=== PATIENT | male | born 1940 | race Caucasian/White ===

== ENCOUNTER 2016-06-18 09:32 | Outpatient (CLI) | payer MEDICARE ==
[2015-11-06 15:13] VITALS: BMI 33.5
--- NOTE | ~2016-06-18 | HEMODYNAMI ---
PATIENT:NANCY REGAN MEDICAL RECORD: [id number] : 44 LOCATION:[facility] ADMISSION DATE: 06/18/16 Generatedon:06/18/201612:19 Patient name: NANCY REGAN Patient #: [id number] SSN: : 1 Date of study: 06/18/2016 Page: Of Hemodynamic Procedure Report Patient Data Patient Demographics Procedure consent was obtained First Name: NANCY Gender: Male Last Name: JASS : 1940 [facility] Initial: [place] Age: 76 year(s) Patient #: [id number] Race: Additional ID: [id number] Contact details [address]: [address] [place] [address] State: [place] City: [place] Zip code: [address] Past Medical History Allergies Allergen Reaction Date Comments Reported Other allergy 12/24/2014 Crabmeat Admission Admission Data Admission Date: 06/18/2016 Admission Time: 9:32 Admit Source: Emergency department Lab Results Lab Result Date: 06/18/2016 Lab Result Time: 0:00 Biochemistry Name Units Result Min Max BUN mg/dl 22 --(----)-* 7 18 Creatinine mg/dl 1.1 --(--*-)-- 0.6 1.3 CBC Name Units Result Min Max Hemoglobin g/dl 16.1 --(--*-)-- 13.5 17.5 Procedure Procedure Types Cath Procedure Diagnostic Procedure LHC LHC w/Coronaries w/Grafts Miscellaneous Procedures Moderate Sedation up to 15 minutes Procedure Description Procedure Date Procedure Date: 06/18/2016 Procedure Start Time: 12:08 Procedure End Time: 12:15 Procedure Staff Name Function Cecil Herrera MD Performing Physician Tamika Conley RN Nurse Eric Friedman RT Monitor Cristobal Ferraro RT Scrub Wiliam Ornelas RT Traffic Lieutenant Procedure Data Cath Procedure Fluoroscopy Diagnostic fluoroscopy Total fluoroscopy Time: 1.1 time: 1.1 min min Diagnostic fluoroscopy Total fluoroscopy dose: 328 dose: 328 mGy mGy Contrast Material Contrast Material Type Amount (ml) Isovue 300 53 Entry Location Entry Primary Successful Side Size Upsize Upsize Entry Closure Succes sful Closure Location (Fr) 1 (Fr) 2 (Fr) Remarks Device Remarks Femoral Right 5 Fr Vascade artery Closure System Diagnostic catheters Device Type Used For End Catheter Placement Cordis 5Fr Pigtail LV Angiography Catheter (MP) Cordis 5Fr JL 4.0 Left Coronary Catheter (MP) Angiography Cordis 5Fr 3DRC Catheter Right Coronary (MP) Angiography Procedure Complications No complications Procedure Medications Medication Administration Route Dosage Oxygen NC 2 l/min Heparin Flush Bag added to field 2 bags (1000units/500ml NS) Lidocaine 2% added to field 20 Fentanyl I.V. 50 mcg Fentanyl I.V. 50 mcg Fentanyl I.V. 50 mcg Versed I.V. 2 mg Fentanyl I.V. 50 mcg Versed I.V. 2 mg Versed I.V. 1 mg Versed I.V. 1 mg Hemodynamics Rest HGB: 16.1 (g/dl) Heart Rate: 70 (bpm) Snapshots Pre Cath Intra NCS Post Cath Vital Signs Time Heart Resp SPO2 etCO2 TD8cysh NIBP (mmHg) Rhythm Pain Status Se dation Rate (ipm) (%) (mmHg) (mmHg) Level (bpm) 11:15:49 76 21 98 0 0 153/91(114) NSR 4 (11) , 10 (A) Distressing 11:20:31 70 21 99 0 0 143/59(95) NSR 8 (11) , 10 (A) Utterly horrible 11:25:04 69 14 97 0 0 126/76(121) NSR 6 (11) , 10 (A) Intense 11:29:22 69 16 96 0 0 109/79(97) NSR 6 (11) , 10 (A) Intense 11:33:40 69 16 100 0 0 113/73(96) NSR 7 (11) , Very 10 (A) intense 11:37:54 69 16 96 0 0 113/84(94) NSR 7 (11) , Very 10 (A) intense 11:42:14 70 16 95 0 0 123/75(98) NSR 2 (11) , 10 (A) Uncomfortable 11:46:34 77 16 95 0 0 115/71(90) NSR 2 (11) , 10 (A) Uncomfortable 11:50:56 76 18 95 0 0 117/73(99) NSR 2 (11) , 10 (A) Uncomfortable 11:55:21 73 16 95 0 0 115/74(110) NSR 2 (11) , 10 (A) Uncomfortable 11:59:43 71 19 97 0 0 113/75(107) NSR 2 (11) , 10 (A) Uncomfortable 12:04:01 69 13 97 0 0 123/81(96) NSR 0 (11) , No 10 (A) pain 12:08:17 69 16 97 0 0 119/82(98) NSR 0 (11) , No 10 (A) pain 12:12:41 69 16 95 0 0 103/63(88) NSR 0 (11) , No 9( A) pain 12:15:47 69 18 96 0 0 115/73(102) NSR 0 (11) , No 9( A) pain Medications Time Medication Route Dose Verified Delivered Reason Notes Eff ectiveness by by 11:21:17 Oxygen NC 2 Cecil Tamika Per l/min Javier Conley RN physician 11:21:26 Heparin Flush added 2 Cecil Jacob used for Bag to bags Javier Herrera MD procedure (1000units/500ml field NS) 11:21:32 Lidocaine 2% added 20ml Cecil Jacob used for to vial Javier Herrera MD procedure field 11:23:11 Fentanyl I.V. 50 Cecil Tamika for chest pt mcg Javier Conley RN pain reports left hip pain spasms and chest pain constant 11/25 11:26:30 Fentanyl I.V. 50 Cecil Tamika for chest pt mcg Javier Conley RN pain reports left hip pain spasms and chest pain constant 09/25 11:33:49 Fentanyl I.V. 50 Cecil Tamika for chest pt mcg Javier Conley RN pain reports left hip pain spasms and chest pain constant 10/25 12:04:23 Versed I.V. 2 mg Cecil Tamika for Javier Conley RN sedation 12:04:38 Fentanyl I.V. 50 Cecil Tamika for mcg Javier Conley RN sedation 12:05:40 Versed I.V. 2 mg Cecil Lundberg for Javier Conley RN sedation 12:07:11 Versed I.V. 1 mg Cecil Lundberg for Javier Conley RN sedation 12:09:09 Versed I.V. 1 mg Cecil Lundberg for Javier Conley RN sedation Procedure Log Time Note 11:00:00 Wiliam Johnson RT(R) (CV) sent for patient. Start room use. 11:00:01 Time tracking: Regular hours 11:00:06 Plan of Care:Hemodynamics will remain stable., Cardiac rhythm will remain stable., Comfort level will be maintained., Respiratory function will remain adequate., Patient/ family verbilizes understanding of procedure., Procedure tolerated without complication., Recovers from procedure without complications.. 11:01:40 H&P Date Dictated: 06/18/2016 Emergent; H&P N/A. 11:01:41 Pre-procedure instructions explained to patient. 11:01:42 Pre-op teaching completed and patient verbalized understanding. 11:01:43 Family in waiting room. 11:01:49 Patient NPO since Midnight. 11:01:54 Is the patient allergic to Iodine/contrast media? No. 11:02:05 ACC The patient was administered the following blood thiners within the last 24 hours: None 11:02:09 Patient diabetic? No. 11:07:04 Patient received from ED to CCL 1 Alert and oriented. Tansferred to table in Supine position. 11:07:05 Warm blankets applied, and matti hugger turned on for patient comfort. 11:07:06 Correct patient and procedure confirmed by team. 11:07:07 Signed procedure consent form obtained from patient. 11:07:11 ECG and BP/O2 sat monitors applied to patient. 11:14:21 Vital chart was started 11:15:02 Rhythm: sinus rhythm 11:15:04 Full Disclosure recording started 11:21:17 Oxygen 2 l/min NC was given by Tamika Conley RN; Per physician; 11:21:26 Heparin Flush Bag (1000units/500ml NS) 2 bags added to field was given by Cecil Herrera MD; used for procedure; 11:21:32 Lidocaine 2% 20ml vial added to field was given by Cecil Herrera MD; used for procedure; 11::28 Admit Source: Emergency department 11:22:33 ACC Patient presents with Unstable Angina CCS Anginal Class 3--Marked limitation of physical activity, angina occurs with ordinary activity.. 11:22:40 Diagnostic Cath status Emergency 11::49 Baseline sample Acquired. 11:23:11 Fentanyl 50 mcg I.V. was given by Tamika Conley RN; for chest pain; pt reports left hip pain spasms and chest pain constant 11/25 11:23:16 Is patient on blood thinner?No 11:24:17 ----Pre-sedation anethsthesia assessment.---- 11:24:20 Previous problem with sedation/anesthesia? No ? 11:24:49 Snore? Yes 11:24:51 Sleep apnea? No 11:24:53 Deviated septum? No 11:24:55 Opens mouth fully? Yes 11:24:56 Sticks out tongue? Yes 11:25:02 Airway obstruction? No ? 11:25:05 Dentures? Yes out 11:25:09 Pre procedure: right dorsailis pedis pulse 1+ Palpable, but thready & weak; easily obliterated 11:25:12 Patient pain scale 0/10 ?. 11:25:18 IV patent on arrival in left forearm with 0.9% NaCl at 10ml/hr. 11:25:31 Right groin area was prepped with chlora-prep and draped in sterile fashion 11:25:32 Alarms reviewed by R. N. 11:25:32 Sharps counted by scrub and verified by R.N. 11::30 Fentanyl 50 mcg I.V. was given by Tamika Conley RN; for chest pain; pt reports left hip pain spasms and chest pain constant 09/25 11:28:23 Lab Result : BUN 22 mg/dl 11::23 Lab Result : Hemoglobin 16.1 g/dl ::23 Lab Result : Creatinine 1.1 mg/dl 11:33:49 Fentanyl 50 mcg I.V. was given by Tamika Conley RN; for chest pain; pt reports left hip pain spasms and chest pain constant 10/25 11:41:18 Zero performed for pressure channel P1 11:41:21 Zero performed for pressure channel P1 12:04:06 --------ALL STOP TIME OUT------ 12:04:06 Final Timeout: patient, procedure, and site verified with staff and physician. All members of the team are in agreement. 12:04:08 Right groin site verified by team. 12:04:13 Physical assessment completed. ASA score P 2 - A patient with mild systemic disease as per Cecil Herrera MD. 12:04:17 Sedation plan: IV Moderate Sedation Versed, Fentanyl 12:04:23 Versed 2 mg I.V. was given by Tamika Conley RN; for sedation; 12:04:38 Fentanyl 50 mcg I.V. was given by Tamika Conley RN; for sedation; 12:04:42 Use device set Femoral Dx 12:04:43 Acist Syringe opened to sterile field. 12:04:43 Bag Decanter opened to sterile field. 12:04:44 Medline Cath Pack opened to sterile field. 12:04:44 Terumo 5Fr Burlison Sheath opened to sterile field. 12:04:44 St Maurilio 260cm J .035 wire opened to sterile field. 12:04:46 Acist Hand Control opened to sterile field. 12:04:46 Acist Manifold opened to sterile field. 12:04:47 Diagnostic Infinity 5Fr Multipack catheter opened to sterile field. 12:04:47 Tegaderm 4 x 4 opened to sterile field. 12:05:40 Versed 2 mg I.V. was given by Tamika Conley RN; for sedation; 12:07:11 Versed 1 mg I.V. was given by Tamika Conley RN; for sedation; 12:08:18 Procedure started. 12:08:33 Local anesthetic to right femoral artery with Lidocaine 2% by Cecil Herrera MD.INITIAL ACCESS ONLY 12:08:40 A 5 Fr sheath was inserted into the Right Femoral artery 12:08:47 A Cordis 5Fr Pigtail Catheter (MP) was advanced over the wire and used for LV Angiography. 12:08:54 LV angiography performed. 12:08:56 LV gram done using BARAJAS 12:09:09 Versed 1 mg I.V. was given by Tamika Conley RN; for sedation; 12:09:49 EF : 55 % 12:09:50 Catheter removed. 12:09:54 A Cordis 5Fr JL 4.0 Catheter (MP) was advanced over the wire and used for Left Coronary Angiography. 12:09:58 LCA angiography performed. 12:11:04 Catheter removed. 12:11:09 A Cordis 5Fr 3DRC Catheter (MP) was advanced over the wire and used for Right Coronary Angiography. 12:11:12 RCA angiography performed. 12:12:02 Catheter removed. 12:12:08 Contrast amount:Isovue 300 53ml. 12:12:49 Sheath removed intact; hemostasis achieved with Vascade Closure System to the Right Femoral artery. 12:13:13 Procedure ended.(Physican Out) 12:13:26 Fluoroscopy time 01.10 minutes. 12:14:52 Fluoroscopy dose: 328 mGy 12:14:52 Flurop Dose total: 328 12:14:54 Sharps counted by scrub and verified by R.N. 12:14:58 Insertion/operative site no bleeding no hematoma. 12:15:00 Post-op/insertion site Right Femoral artery dressed using a 4 x 4 and Tegaderm. 12:15:04 Post right femoral artery:stable 12:15:05 Post Procedure Pulses reassessed and unchanged 12:15:07 Post procedure: right dorsailis pedis pulse 1+ Palpable, but thready & weak; easily obliterated. 12:15:10 Post procedure rhythm: sinus rhythm 12:15:11 Post procedure instruction explained to patient.Patient verbalizes understanding. 12:15:12 Procedure and supply charges have been captured, reviewed, submitted and are correct. 12:15:25 Vascade 5Fr Closure Device opened to sterile field. 12:15:38 Procedure type changed to Cath procedure, Diagnostic procedure, LHC, LHC w/Coronaries w/Grafts, Miscellaneous Procedures, Moderate Sedation up to 15 minutes 12:15:46 Procedure Complication : No complications 12:15:50 Vital chart was stopped 12:15:50 See physician's report for complete and final results. 12:15:53 Report given to Pre/Post Procedure Room. 12:15:57 Patient transfered to Pre/Post Procedure Room with Stretcher. 12:15:59 Procedure ended. 12:15:59 Full Disclosure recording stopped 12:16:02 End room use (Document Last) Device Usage Item Name Manufacture Quantity Catalog Number Hospital Part Current Minima l Lot# / Charge Number Stock Stock Serial# Code Acist Acist 1 [id number] [id number] [id number] 20 Syringe Medical Systems Inc Bag Microtek 1 2002S [id number] 95649 908039 5 Decanter Medical Inc. Medline Cardinal 1 [id number] 49956 204308 5 Cath Pack Health Terumo 5Fr Terumo 1 [id number] 087656 592157 220772 [address] St Maurilio 1 280272 879496 218160 068978 30 260cm J .035 wire Acist Hand Acist 1 92122 859848 640976 312565 5 Control Medical Systems Inc Acist Acist 1 21099 023121 791649 012053 5 Manifold Medical Systems Inc Diagnostic Cardinal 1 [id number] 274037 66263 398048 30 Infinity Health 5Fr Multipack catheter Tegaderm 4 3M 1 1626W 808056 941845 941538 5 x 4 Cordis 5Fr Cardinal 1 333352 5 Pigtail Health Catheter (MP) Cordis 5Fr Cardinal 1 [id number] 5 JL 4.0 Health Catheter (MP) Cordis 5Fr Cardinal 1 565995 5 3DRC Health Catheter (MP) Vascade Cardiva 1 [id number] 508869 15527 673723 10 5Fr Medical, Closure Inc. Device Signature Audit [place] Stage Time Signature Unsigned Intra-Procedure 06/18/2016 Eric Friedman 12:19:32 PM RT(R) Signatures Monitor : Eric Friedman RT Signature : Date : Time : [facility] [address] [place] [address]
[~2016-06-18 09:32] MED LIST: ASPIRIN325 MG PO; BAYER CHEWABLE81 MG PO; FLAGYL500 MG PO; FLOMAX0.4 MG PO; FLORANEX / LACT1 TAB PO; HYDROCHLOROTH12.5 M1 PO; LEVAQUIN750 MG PO; LOPRESSOR25 MG PO; MOBIC7.5 MG PO; NITROSTAT0.4 MG SL; PLAVIX75 MG; QUESTRAN PACK4 G/PKT PO; UROCIT-K10 MEQ PO; XIFAXAN550 MG PO; [UNRECOGNIZED DRUG - OTHER]; [UNRECOGNIZED DRUG - OTHER]; [UNRECOGNIZED DRUG - REMARK]
[2016-06-18 10:00] LABS: BASOPHILS 0.3 % (0.0-2.0); EOSINOPHILS 4.8 % (0-7); HEMATOCRIT 47.4 % (42.0-54.0); HEMOGLOBIN 16.1 g/dL (13.5-17.5); IMMATURE GRANULOCYTES 0.2 % (0-5); LYMPHOCYTES 26.7 % (15-50); MCH 31.1 pg (26.0-34.0); MCV 91.5 fL (80.0-100.0); MEAN PLATELET VOLUME 10.9 fL (7.4-10.4); MONOCYTES 9.1 % (2-11); NEUTROPHILS 58.9 % (40-80); PLATELET COUNT 169 10x3/uL (130-400); RBC 5.18 10x6/uL (4.20-6.10); RDW 12.2 % (11.5-14.5); WBC 6.5 10x3/uL (4.8-10.8)
[2016-06-18 10:26] LABS: ALBUMIN 3.6 g/dL (3.4-5.0); ALKALINE PHOSPHATASE 108 U/L (46-116); ALT (SGPT) 37 U/L (10-68); BILIRUBIN - TOTAL 0.71 mg/dL (0.2-1.3); CALC OSMOLALITY 281 mosm/kg (275-300); CALCIUM 9.4 mg/dL (8.5-10.1); CARBON DIOXIDE 29.2 mmol/L (21.0-32.0); CHLORIDE - SERUM 104 mmol/L (98-107); CREATININE - SERUM 1.1 mg/dL (0.6-1.3); GLUCOSE 93 mg/dL (74-106); POTASSIUM - SERUM 5.1 mmol/L (3.5-5.1); PROTEIN - SERUM 7.3 g/dL (6.4-8.2); SODIUM 140 mmol/L (136-145); UREA NITROGEN 22 mg/dL (7-18); eGFR NON AFRICAN AMERICAN 69 mL/min (90-120)
[2016-06-18 10:52] LABS: CHOL - HDL RATIO 3.5 ratio (2.3-4.9); CHOLESTEROL, TOTAL 166 mg/dL (0-200); CKMB 0.4 U/L (0.0-3.6); CREATINE KINASE 94 UL (21-232); HDL CHOLESTEROL 47 mg/dL (32-96); LDL CHOLESTEROL 66 mg/dL (0-100); LDL-HDL RATIO 1.4 ratio (1.5-3.5); TRIGLYCERIDE 266 mg/dL (30-200)
[2016-06-18 10:53] LABS: TROPONIN-I < 0.017 ng/mL (0.000-0.060)
[2016-06-18 10:54] LABS: MAGNESIUM - SERUM 1.8 mg/dL (1.8-2.4)
--- NOTE | 2016-06-18 12:30 | NUR ---
1230 VSS WITH CHEST PAIN DENIED 6 FR VASCADE R/GROIN CDI NO BLEEDING NO HEMATOMA NOTED INSTRUCTED PATIENT TO KEEP RLE STRAIGHT WITH HEAD FLAT ON PILLOW
--- NOTE | 2016-06-18 13:00 | NUR ---
1300 RESTING QUIELTY WITH EYES CLOSED VSS NO DISTRESS NOTED. 6 FR VASCADE R/GROIN CDI NO HEMATOMA NO BLEEDING NOTED
--- NOTE | 2016-06-18 13:56 | NUR ---
VSS WITH CHEST PAIN DENIED 5 FR VASCADE R/GROIN CDI NO BLEEDING NO HEMATOMA NOTED. SANDWICH AND SODA TO BEDSIDE
--- NOTE | 2016-06-18 14:12 | NUR ---
PIV REMOVED FROM LEFT ARM WITH DRESSING APPLIED. 5 FR VASCADE R/GROIN CDI NO BLEEDING NO HEMATOMA NOTED. VSS REPOSITIONED TO SITTING WITH HOB UP 45 DEGREES FOR DISCHARGE HOME
--- NOTE | 2016-06-18 14:32 | NUR ---
DISHCARGE INSTRUCTIONS GONE OVER WITH PATIENT. LEFT VIA WC TO PARKING FOR TO DRIVE HOME CHEST PAIN DENIED WITH 5 FR VASCADE R/GROIN CDI
--- NOTE | 2016-06-28 10:08 | CN ---
PATIENT NAME:NANCY EDMONDSON MEDICAL RECORD: [id number] : 44 LOCATION:[facility] ADMIT DATE: ACCOUNT: [id number] CONSULTING PHYSICIAN: KEVIN BENAVIDES MD REFERRING PHYSICIAN: KEVIN BENAVIDES MD DATE OF CONSULTATION: 06/18/2016 DIAGNOSES: 1. Unstable angina. 2. Coronary artery disease. 3. Previous multivessel percutaneous transluminal coronary angioplasty stent. 4. Hypertension. HISTORY OF PRESENT ILLNESS: Mr. Edmondson has been having increasing episodes of chest pain, chest discomfort compatible with angina since Tuesday, it is worsened. He is having 5/10 chest pain here in the ER today. He has no acute ST-T abnormalities on his EKG. His heart rates in the 70s. Systolic blood pressures in the 130s. PHYSICAL EXAMINATION: GENERAL APPEARANCE: Well-nourished, well-developed, appears stated age. Level of distress, comfortable. PSYCHIATRIC: Mental status, alert, normal affect. Orientation, oriented to time, place and person. EYES: Lids and conjunctiva, noninjected. No discharge, no pallor. ENT: Lips, teeth, gums, normal dentition. Oropharynx, no cyanosis, no pallor. NECK: Carotid arteries, bilateral normal upstroke, no bruits, no thrills. JUGULAR VEINS: No jugular venous pressure or distention. CERVICAL LYMPH NODES: Nontender, nonenlarged. THYROID: Not enlarged. Nontender. No nodules. LUNGS: Respiratory effort, unlabored. CHEST: Normal curvature. No thoracic deformity. No chest wall tenderness. Percussion, resonant. Auscultation, clear. No wheezes, no rales, no rhonchi. CARDIOVASCULAR: Precordial exam, nondisplaced. No heaves or pericardial thrills. Rate and rhythm, regular. Heart sounds, normal S1, normal S2. No S3, no gallop, no rub. Systolic murmur, not heard. Diastolic murmur, not heard. EXTREMITIES: No cyanosis, no edema. Peripheral pulses, full and equal in all extremities, except as noted. No bruits appreciated. ABDOMEN: Soft, nondistended. Normal aorta. No bruit. Nontender. No masses. Liver, nontender, no hepatomegaly. Spleen, nontender, no splenomegaly. MUSCULOSKELETAL: No joint tenderness. No joint swelling. No erythema. NEUROLOGICAL: Normal gait, normal strength, normal tone. SKIN: Warm and dry. REVIEW OF SYSTEMS: The patient reports easy bruising but reports no swollen glands. The patient reports no fever, no night sweats, no significant weight gain, no significant weight loss. No significant exercise tolerance. The patient reports no dry eyes, no irritation, no vision change. Patient reports no difficulty hearing and no ear pain. Patient reports no frequent nose bleeds or nose and sinus problems. Patient reports on arm pain on exertion. No shortness of breath while lying down. No history of heart murmur. Patient reports no cough, no wheezing or coughing up blood. Patient reports no abdominal pain, no vomiting. Normal appetite. No diarrhea and not vomiting blood. No nausea and no constipation. Patient reports no incontinence. No difficulty urinating. No hematuria. No increased frequency. Patient reports CONSULT REPORT [id number] NANCY EDMONDSON no muscle aches. No weakness, no arthralgias, no back pain. No swelling of the extremities. Patient reports no abnormal mole, no jaundice, no rashes. Reports no loss of consciousness. No weakness and no numbness. No seizures, dizziness, or headaches. The patient reports no depression, no sleep disturbance, feeling safe in a relationship and no alcohol abuse. Patient reports on fatigue. Reports no runny nose or sinus pressure. No itching, no hives, and no frequent sneezing. OVERALL IMPRESSION: Chest discomfort, unstable despite optimal heart rate and blood pressure control on metoprolol and MILADYS inhibitor. We will proceed with coronary angiography. Further care depends upon findings of the angiography. TRANSINT:[id number] Voice Confirmation ID: [id number] DOCUMENT ID: [id number] KEVIN BENAVIDES MD at 1008 CC: [id number] DICTATION DATE: 06/18/16 1048 PATTERN SCRATCHER: 06/18/16 1936 DEP CLI 06/18/16 [facility] [address] [place] [id number]
--- NOTE | 2016-06-28 10:08 | OP ---
PATIENT NAME: NANCY REGAN MEDICAL RECORD: [id number] :44 LOCATION:D.CAT ADMISSION DATE: SURGEON: KEVIN BENAVIDES MD DATE OF OPERATION: 06/18/2016 PROCEDURES: 1. Left heart catheterization. 2. Selective coronary angiography. 3. Left ventriculogram. INDICATION: Chest pain compatible with angina. PROCEDURE IN DETAIL: After informed consent was obtained and after detailed explanation of risks, benefits as well as alternative therapies, the patient elected to proceed with angiogram and heart catheterization. The right femoral area was prepped and draped in normal sterile fashion. The right femoral artery was cannulated via modified Seldinger technique with placement of a 5-Fijian sheath. All catheters exchanged through this sheath. FINDINGS: Left ventriculogram was performed in the standard 30-degree BARAJAS view reveals good cardiac wall motion throughout all segments. Overall ejection fraction estimated 60%. SELECTIVE CORONARY ANGIOGRAPHY: 1. Left main showed no significant angiographic disease. 2. Left anterior descending has previously placed stent. This is widely patent. No disease elsewise throughout the LAD or its branches. 3. Left circumflex shows moderate irregularities, but no flow-limiting stenosis. 4. Right coronary has moderate irregularities, but no flow-limiting stenosis. OVERALL IMPRESSION: Wide patency of the previously placed stent in the left anterior descending with no disease elsewise. Continue medical management of the coronary artery disease and cardiac risk factors. TRANSINT:[id number] Voice Confirmation ID: [id number] DOCUMENT ID: [id number] KEVIN BENAVIDES MD at 1008 CC: [id number] DICTATION DATE: 06/18/16 1216 LEAD JAVA PROGRAMMER: 06/18/162023 DEP CLI 06/18/16 [facility] [address] [id number]
== END 2016-06-18 14:34 | disposition home or self-care (01) ==
LOC: D.CATH 09:32 → D.ER 09:32 → EDSTATUS 11:02 → D.CATH 14:34
PROVIDERS: Emergency Medicine
DX: I25.119 Atherosclerotic heart disease of native coronary artery with unspecified angina pectoris (principal); Z95.5 Presence of coronary angioplasty implant and graft

== ENCOUNTER 2016-07-21 14:09 | Emergency (ER) | payer MEDICARE ==
[2015-11-06 15:13] VITALS: BMI 33.5
[2016-07-21 14:52] LABS: BASOPHILS 0.4 % (0.0-2.0); EOSINOPHILS 4.9 % (0-7); HEMATOCRIT 42.7 % (42.0-54.0); HEMOGLOBIN 14.3 g/dL (13.5-17.5); IMMATURE GRANULOCYTES 0.2 % (0-5); LYMPHOCYTES 29.8 % (15-50); MCH 30.4 pg (26.0-34.0); MCHC 33.5 g/dL (31.0-37.0); MCV 90.7 fL (80.0-100.0); MEAN PLATELET VOLUME 10.5 fL (7.4-10.4); MONOCYTES 8.1 % (2-11); NEUTROPHILS 56.6 % (40-80); PLATELET COUNT 164 10x3/uL (130-400); RBC 4.71 10x6/uL (4.20-6.10); RDW 12.1 % (11.5-14.5); WBC 4.9 10x3/uL (4.8-10.8)
[2016-07-21 15:27] LABS: ALBUMIN 3.5 g/dL (3.4-5.0); ANION GAP 11.6 mmol/L (8-16); BILIRUBIN - TOTAL 0.52 mg/dL (0.2-1.3); CALCIUM 8.7 mg/dL (8.5-10.1); CARBON DIOXIDE 27.3 mmol/L (21.0-32.0); CREATININE - SERUM 1.6 mg/dL (0.6-1.3); POTASSIUM - SERUM 3.9 mmol/L (3.5-5.1); PROTEIN - SERUM 6.7 g/dL (6.4-8.2)
== END 2016-07-21 19:53 | disposition home or self-care (01) ==
LOC: D.ER 14:09
PROVIDERS: Emergency Medicine
DX: R07.9 Chest pain, unspecified (principal); I95.9 Hypotension, unspecified; N18.9 Chronic kidney disease, unspecified; I25.10 Atherosclerotic heart disease of native coronary artery without angina pectoris; C61 Malignant neoplasm of prostate; C44.90 Unspecified malignant neoplasm of skin, unspecified

== ENCOUNTER 2016-11-11 05:02 | Emergency (ER) | payer MEDICARE ==
[2015-11-06 15:13] VITALS: BMI 33.5
[2016-11-11 07:03] LABS: BASOPHILS 0.1 % (0-2); EOSINOPHILS 3.3 % (0-7); HEMATOCRIT 43.2 % (42.0-54.0); HEMOGLOBIN 14.8 g/dL (13.5-17.5); IMMATURE GRANULOCYTES 0.4 % (0-5); LYMPHOCYTES 19.9 % (15-50); MCH 31.5 pg (26.0-34.0); MCHC 34.3 g/dL (31.0-37.0); MCV 91.9 fL (80.0-100.0); MEAN PLATELET VOLUME 10.2 fL (7.4-10.4); MONOCYTES 7.1 % (2-11); NEUTROPHILS 69.2 % (40-80); PLATELET COUNT 152 10x3/uL (130-400); RDW 11.9 % (11.5-14.5); WBC 7.2 10x3/uL (4.8-10.8)
[2016-11-11 07:10] LABS: ANION GAP 11.1 mmol/L (8-16); CALCIUM 8.5 mg/dL (8.5-10.1); CARBON DIOXIDE 26.8 mmol/L (21.0-32.0); CREATININE - SERUM 1.3 mg/dL (0.6-1.3); POTASSIUM - SERUM 4.9 mmol/L (3.5-5.1)
== END 2016-11-11 09:38 | disposition home or self-care (01) ==
LOC: D.ER 05:02
PROVIDERS: Emergency Medicine
DX: G43.909 Migraine, unspecified, not intractable, without status migrainosus (principal); I25.10 Atherosclerotic heart disease of native coronary artery without angina pectoris; C61 Malignant neoplasm of prostate; I12.9 Hypertensive chronic kidney disease with stage 1 through stage 4 chronic kidney disease, or unspecified chronic kidney disease; N18.9 Chronic kidney disease, unspecified; C44.90 Unspecified malignant neoplasm of skin, unspecified

== ENCOUNTER 2017-02-27 12:02 | Emergency (ER) | payer MEDICARE ==
[2015-11-06 15:13] VITALS: BMI 33.5
== END 2017-02-27 14:46 | disposition home or self-care (01) ==
LOC: D.ER 12:02
DX: S69.92XA Unspecified injury of left wrist, hand and finger(s), initial encounter (principal); W19.XXXA Unspecified fall, initial encounter; Y93.89 Activity, other specified; Y92.029 Unspecified place in mobile home as the place of occurrence of the external cause; S52.612A Displaced fracture of left ulna styloid process, initial encounter for closed fracture; I10 Essential (primary) hypertension; Z85.46 Personal history of malignant neoplasm of prostate; Z87.2 Personal history of diseases of the skin and subcutaneous tissue